=== PATIENT | female | born 2000 | race Caucasian/White ===

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

== ENCOUNTER → 2020-01-30 15:30 | Outpatient (BNVA) | payer MEDICAID, SELFPAY | PROVIDERS: Family Provider Electrodiagnostic Medicine; PCP Electrodiagnostic Medicine; Visit Provider Obstetrics & Gynecology | DX: Z30.014 Encounter for initial prescription of intrauterine contraceptive device (principal); F41.9 Anxiety disorder, unspecified | CPT/HCPCS: 81025 ==

== ENCOUNTER → 2020-05-06 14:51 | Outpatient (BNVA) | payer MEDICAID, SELFPAY | PROVIDERS: Family Provider Electrodiagnostic Medicine; PCP Electrodiagnostic Medicine; Visit Provider Nurse Practitioner Family | DX: Z11.59 Encounter for screening for other viral diseases (principal) | CPT/HCPCS: 87635 ==

== ENCOUNTER → 2020-07-16 10:35 | Outpatient (BNVA) | payer MEDICAID, SELFPAY | PROVIDERS: Family Provider Electrodiagnostic Medicine; PCP Electrodiagnostic Medicine; Visit Provider Nurse Practitioner | DX: Z11.59 Encounter for screening for other viral diseases (principal); J02.9 Acute pharyngitis, unspecified | CPT/HCPCS: 87070; 87071; 87880 ==

== ENCOUNTER → 2020-07-26 12:10 | Outpatient (BNVA) | payer MEDICAID, SELFPAY | PROVIDERS: Family Provider Electrodiagnostic Medicine; PCP Electrodiagnostic Medicine; Visit Provider Nurse Practitioner Family | DX: J02.9 Acute pharyngitis, unspecified (principal) | CPT/HCPCS: 87071; 87880 ==

== ENCOUNTER → 2020-10-04 10:08 | Outpatient (BNVA) | payer MEDICAID, SELFPAY | PROVIDERS: PCP Electrodiagnostic Medicine; Visit Provider Nurse Practitioner Family | DX: J02.9 Acute pharyngitis, unspecified (principal) | CPT/HCPCS: 87071; 87880 ==

== ENCOUNTER → 2020-10-10 11:22 | Outpatient (BNVA) | payer MEDICAID, SELFPAY | PROVIDERS: PCP Electrodiagnostic Medicine | DX: J02.9 Acute pharyngitis, unspecified (principal) | CPT/HCPCS: 86308; 87070 ==

== ENCOUNTER 2020-12-10 23:07 | Emergency (ER) | payer MEDICAID, SELFPAY ==
[2020-12-10 23:13] VITALS: BP 135/89; PULSE 97; RESP 14; TEMP 36.9; O2SAT 100; BMI 34.7
--- NOTE | 2020-12-10 23:23 | ED_ITS ---
HPI - General Adult General: Chief complaint: General Medical Stated complaint: H/A, STUFFY NOSE, SORE THROAT Time Seen by Provider: 12/10/20 23:18 History of Present Illness: HPI narrative: Patient is a 20-year-old female who comes to the ED with nasal congestion and a headache. Patient says symptoms started approximately 4 days ago. She denies any fever, chills, shortness of breath, chest pain, abdominal pain, nausea/vomiting, bladder or bowel symptoms. Patient says she has a cough but it is phlegm from the back of her throat that causes cough. She is also having a sore throat but it has improved in the last 24 hours. She has nasal congestion drainage scantly yellowish-green in color. Patient currently has IUD Mirena for control. Associated symptoms: Reports headache(s); Deny chest pain, dyspnea, nausea, rash, palpitations or vomiting Review of Systems Const: Denies: fever(s), chills or fatigue Eyes: Denies: change in vision or eye discomfort ENMT: Reports: throat pain, nasal discharge, nasal congestion, post nasal drip and sinus pain (bilateral maxillary sinus pain); Denies: odynophagia Card: Denies: chest pain, palpitations, edema, swelling of feet/ankles, dyspnea on exertion or orthopnea Resp: Denies: dyspnea, productive cough or non-productive cough GI: Denies: abdominal pain, nausea, vomiting, diarrhea, constipation or hematochezia : Denies: flank pain, dysuria or hematuria Musc: Denies: neck pain, back pain or extremity swelling Skin/Breast: Denies: rash or new lesions Neuro: Reports: headache(s); Denies: numbness in extremities or weakness in extremities PFS ED PFSH: Medical History Patient denies medical problems Denies diabetes, asthma, hypertension, seizures, DVT/PE, history of genital herpes for her and her partner. PCP: none Surgical History No history of previous surgery Family History Grandfather Diabetes Maternal Father Hypertension Family/Other No problems noted. 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 Looking for a job as well. Additional social history: - Tobacco Use: former vaper; used for approximately a month and stopped November 2018 Alcohol Use: Denies current or past use Drug Use: Denies current or past use Work/Study Status: Graduated High School in 08/2019. Currently staying at home with her baby and plans to go to college in the fall Female Reproductive History: Date of last menstrual period: 03/16/19 Physical Exam Const: COMMON NORMALS: no acute distress, patient oriented x3, healthy appearing and alert GENERAL APPEARANCE: cooperative and comfortable HENMT: COMMON NORMALS: normocephalic HEAD & SCALP: normocephalic FACE & SINUS: sinus tenderness maxillary (Bilateral) NOSE: Nasal discharge present purulent MOUTH: Normal oral and palatal mucosa present THROAT: uvula midline and posterior oropharynx abnormal cobblestoning and erythema; no exudates Neck/C-Spine: COMMON NORMALS: supple GENERAL: Yes normal visual inspection Resp: COMMON NORMALS: normal respiratory effort, No retractions, No use of accessory muscles and clear to auscultation bilaterally EFFORT & INSPECTION: Yes able to speak in complete sentences, No tachypneic, No respiratory distress and No labored AUSCULTATION: clear to auscultation bilaterally Cardio: COMMON NORMALS: regular rate, regular rhythm, S1 normal heart sound present, S2 normal heart sound present, No gallops present (Cardio), No clicks present (Cardio), No murmurs present (Cardio) and Peripheral pulses 2+ throughout RATE: regular rate RHYTHM: regular rhythm HEART SOUNDS: S1 normal heart sound present and S2 normal heart sound present PERIPHERAL PULSE S: Peripheral pulses 2+ throughout GI: COMMON NORMALS: Normal to inspection, nondistended, normoactive bowel sounds present, Soft to palpation, non-tender and no masses PALPATION: Yes Soft to palpation : COMMON NORMALS: Yes no CVA tenderness BLADDER/KIDNEY EXAM: Yes no CVA tenderness Back/Pelvis: COMMON NORMALS: no CVA tenderness Extremity: COMMON NORMALS: normal to inspection Neuro: COMMON NORMALS: patient oriented x3 and moves all extremities SENSORIUM/ORIENTATION: Yes alert Skin: GENERAL SKIN EXAM: dry skin Course Vital Signs: Vital signs: Vital Signs Temperature 98.4 F 12/10/20 23:13 Pulse Rate 97 12/11/20 00:17 Respiratory Rate 14 12/11/20 00:17 Blood Pressure 135/89 12/11/20 00:17 Pulse Oximetry 100 12/11/20 00:17 MDM - General Adult MDM Narrative: Medical decision making narrative: Patient is a 20-year-old female comes to the ED with nasal congestion drainage, headache, sore throat and some sinus pain. Reports yellow-greenish mucus draining from nose. Exam shows a healthy female in no acute distress or pain. Lungs are clear to auscultation bilaterally. Patient had some maxillary sinus tenderness bilaterally upon palpation. Chest x-ray showed no acute findings. Strep test was negative. Janusz valdez was diagnosed with sinusitis and given a dose of azithromycin and Solu- Medrol here in the ED. She is discharged home with prescription for azithromycin and prednisone. Told to follow-up with PCP in 7 to 10 days for reevaluation. Return to ED precautions given. Patient understood and agreed with plan. Lab Data: Attestation: I reviewed the patient's lab results. Labs: Lab Results 12/10/20 Range/Units 23:35 Group A Strep Rapi d Negative (Negative) Imaging Data^: CXR: Attestation: I personally reviewed and interpreted this imaging study as follows: My impression: Chest x-ray showed no acute infiltrates or findings. Discharge Plan Discharge Patient Disposition: Home Clinical Impression: Sinusitis Qualifiers: Sinusitis location: maxillary Chronicity: acute Recurrence: non-recurrent Qual ified Code(s): J01.00 - Acute maxillary sinusitis, unspecified Condition: Stable Prescriptions: New azithromycin 250 mg tablet 250 mg PO DAILY 4 Days Qty: 4 RF: 0 prednisone 50 mg tablet 50 mg PO DAILY 3 Days Qty: 3 RF: 0 No Action Mirena 20 mcg/24 hours (5 yrs) 52 mg intrauterine device 1 device INTRAUTERI .q 5 years Qty: 1 RF: 0 Zyrtec 10 mg capsule 10 mg PO DAILY RF: 0 Discharge Orders: Discharge ED (Routine); Ordered 12/10/20 Ordered By: Javon Hannah Referrals: Nikolai Edge DO [Primary Care Provider] - Discharge Diet: Regular Discharge Activity: Resume usual activity Patient Instructions: Sinusitis (ED) Activity Restrictions/Additional Instructions: Follow-up with medical provider as directed in 7 to 10 days for reevaluation. Take medications as prescribed. Make sure drinking plenty of fluids and staying hydrated. Take apon-lob-xckiqyt Tylenol or ibuprofen for fevers. Return to the ER or your medical provider if condition worsens. Please read and understand discharge instructions. If any questions, please ask. Coding Level of Care Code ED Fixed Capital Clerk for Mary Fwnellie Exam Comprehensive
--- NOTE | 2020-12-10 23:28 | XR_ITS ---
WS: [id number] XR chest 1V portable [id number] REASON FOR EXAM: cough and congestion FINDINGS: The heart and mediastinum are within normal limits. No active pulmonary parenchymal or pleural disease is noted. Mild elevation of the left hemidiaphragm. Bony thorax intact. XR/XR chest 1V portable [id number] IMPRESSION: No acute chest abnormality.
[2020-12-10 23:48] LABS: Rapid Strep A Test Negative (Negative)
[2020-12-11] MEDS: azithromycin 250 mg Tablet 500 MG PO (00:10)
[2020-12-11 00:17] VITALS: BP 135/89; PULSE 97; RESP 14; O2SAT 100
== END 2020-12-11 00:19 | disposition home or self-care (01) ==
PROVIDERS: Emergency Provider Physician Assistant; PCP Electrodiagnostic Medicine
DX: J01.00 Acute maxillary sinusitis, unspecified (principal); Z87.891 Personal history of nicotine dependence
CPT/HCPCS: 71045; 87081; 87880; 96372; 99283; J2930; Q0144

== ENCOUNTER 2021-01-15 00:48 | Emergency (ER) | payer MEDICAID, SELFPAY ==
[2021-01-15 00:58] VITALS: BP 131/91; PULSE 92; RESP 18; TEMP 36.8; O2SAT 99; BMI 27.4
--- NOTE | 2021-01-15 01:10 | ED_ITS ---
HPI - Skin/Abscess/Foreign Bdy General: Chief complaint: Skin/Abscess/Foreign Body Stated complaint: infected ear piercing Time Seen by Provider: 01/15/21 00:51 Source: patient Mode of arrival: ambulatory Limitations: no limitations History of Present Illness: HPI narrative: Patient is a 20-year-old female who presents to ED today along with her for concerns for an infected left ear piercing. She states approximately a month ago she got a bar style 16-gauge piercing to the anterior portion of her left ear. She states over the last few days she has noticed pain and discharge. complaint: other (infected ear piercing) Onset (ago): day(s) Tetanus up to date: yes Location: face (L ear) Severity: mild Relieving factors: none Exacerbating factors: none Context: other (piercing) Associated symptoms: Reports no associated symptoms Treatments prior to arrival: none Review of Systems ENMT: Reports: other (infected L ear piercing); Denies: change in hearing or tinnitus [facility] ED PFSH: Medical History (Updated 01/15/21 @ 01:11 by RALPH Jackson) No pertinent past medical history Denies diabetes, asthma, hypertension, seizures, DVT/PE PMD: none Surgical History No history of previous surgery Family History Grandfather Diabetes Maternal Father Hypertension Family/Other No problems noted. 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 Looking for a job as well. Additional social history: - Tobacco Use: former vaper; used for approximately a month and stopped November 2018 Alcohol Use: Denies current or past use Drug Use: Denies current or past use Work/Study Status: Graduated High School in 08/2019. Currently staying at home with her baby and plans to go to college in the fall Female Reproductive History: Date of last menstrual period: 11/25/20 Physical Exam Const: COMMON NORMALS: no acute distress, patient oriented x3, no limitations and alert HENMT: COMMON NORMALS: hearing grossly normal bilaterally and EAC's normal EXTERNAL EAR: Yes mastoids normal and Yes no periauricular adenopathy EXTERNAL AUDITORY CANAL: EAC's normal TYMPANIC MEMBRANE: TM normal on the left EAR IMAGES: 1. 16g bar piercing; bar was removed in triage by RN; small area of redness with scant amount of purulent drainage; no diffuse auricle cellulitis Neuro: COMMON NORMALS: patient oriented x3 SENSORIUM/ORIENTATION: Yes alert Course Vital Signs: Vital signs: Vital Signs Temperature 98.2 F 01/15/21 00:58 Pulse Rate 92 01/15/21 00:58 Respiratory Rate 18 01/15/21 00:58 Blood Pressure 131/91 01/15/21 00:58 Pulse Oximetry 99 01/15/21 00:58 Discharge Plan Discharge Patient Disposition: Home Clinical Impression: Infected pierced ear Qualifiers: Encounter type: initial encounter Laterality: left Qualified Code(s): S01.332A - Puncture wound without foreign body of left ear, initial encounter Condition: Stable Prescriptions: New mupirocin 2 % ointment 1 applic topical BID Qty: 15 RF: 0 Discharge Orders: Discharge ED (Routine); Ordered 01/15/21 Ordered By: Naheed Barnes Referrals: Nikolai Edge DO [Primary Care Provider] - Patient Instructions: Body Piercing Infection Activity Restrictions/Additional Instructions: Keep wound clean with hydrogen peroxide/alcohol as well as warm soapy water. You may apply the mupirocin ointment twice daily. Monitor for worsening infection such as redness, swelling, drainage, increased pain. Coding Level of Care Code ED Tuck Pointer Helper for Chg Fwd Exam Expanded Problem Focused
[2021-01-15 01:18] VITALS: PULSE 72; RESP 16; O2SAT 99
== END 2021-01-15 01:21 | disposition home or self-care (01) ==
PROVIDERS: Emergency Provider Physician Assistant; PCP Electrodiagnostic Medicine
DX: S01.332A Puncture wound without foreign body of left ear, initial encounter (principal); Z87.891 Personal history of nicotine dependence; W26.8XXA Contact with other sharp object(s), not elsewhere classified, initial encounter
CPT/HCPCS: 99282

== ENCOUNTER → 2021-01-28 11:02 | Outpatient (BNVA) | payer MEDICAID, SELFPAY | PROVIDERS: PCP Electrodiagnostic Medicine; Visit Provider Obstetrics & Gynecology | DX: Z32.01 Encounter for pregnancy test, result positive (principal) | CPT/HCPCS: 81025 ==

== ENCOUNTER → 2021-02-25 10:35 | Outpatient (BNVA) | payer MEDICAID, SELFPAY | PROVIDERS: PCP Electrodiagnostic Medicine; Visit Provider Nurse Practitioner Women's Health | DX: O21.9 Vomiting of pregnancy, unspecified (principal); O99.211 Obesity complicating pregnancy, first trimester; Z3A.00 Weeks of gestation of pregnancy not specified | CPT/HCPCS: 81000 ==

== ENCOUNTER → 2021-03-11 11:08 | Outpatient (BNVA) | payer MEDICAID, SELFPAY | PROVIDERS: PCP Electrodiagnostic Medicine; Visit Provider Obstetrics & Gynecology | DX: Z34.80 Encounter for supervision of other normal pregnancy, unspecified trimester (principal) | CPT/HCPCS: 80307; 81000; 82950; 85027; 86592; 86762; 86803; 86850; 86900; 87086; 87340; 87806 ==

== ENCOUNTER → 2021-03-14 14:17 | Outpatient (BNVA) | payer MEDICAID, SELFPAY | PROVIDERS: PCP Electrodiagnostic Medicine; Visit Provider Obstetrics & Gynecology | DX: R30.0 Dysuria (principal) | CPT/HCPCS: 81000; 87077; 87086; 87184 ==

== ENCOUNTER 2021-03-30 15:26 | Emergency (ER) | payer MEDICAID, SELFPAY ==
[2021-03-30 15:50] VITALS: BP 143/96; PULSE 92; RESP 18; TEMP 36.6; O2SAT 92; BMI 36.0
--- NOTE | 2021-03-30 17:36 | USR_ITS ---
PROCEDURE INFORMATION: Exam: US , Limited Exam date and time: 03/30/2021 5:36 PM Age: 20 years old Clinical indication: Lmp or gestational age (in weeks): 13w0d; Antepartum complications; Bleeding; ; Additional info: Threatened ab TECHNIQUE: Imaging protocol: Real-time ultrasound of the maternal uterus with image documentation. Exam focused on the clinical indication. COMPARISON: US OB transvaginal [facility] 03/11/2021 10:06 AM FINDINGS: Gestation: movement is present. heart rate: heart beat 160 bpm. Placenta: Posterior placenta. Amniotic fluid: Subjectively normal amniotic fluid. BIOMETRY: Gestational age (AUA): Single viable intrauterine with EGA 13 weeks 0 days. Estimated due date (AUA): SABINE by ultrasound October 05, 2021. Matheny-Rump length: 6.76 cm crown-rump length with EGA 13 weeks 0 days. MATERNAL: Cervix: 4.1 cm closed cervix. US/US OB limited [id number] IMPRESSION: 1. Single viable intrauterine with EGA 13 weeks 0 days. 2. SABINE by ultrasound October 05, 2021. 3. 4.1 cm closed cervix. 4. Posterior placenta. 5. Subjectively normal amniotic fluid.
--- NOTE | 2021-03-30 18:13 | W.ED.FEMALGU ---
HPI - Female Genitourinary General: Chief complaint: Urogenital-Female Stated complaint: 13 WEEKS PREG AND BLEEDING Time Seen by Provider: 03/30/21 17:37 History of Present Illness: HPI Narrative: Patient is a 20-year-old female G2, P1 at approximately 13 weeks gestational age who comes to the ER complaining of spotting. Not enough to change her pad. She says she is usually lazy and lays around it does nothing however today she walked for 2 hours and had spotting. She is upset about waiting in the waiting room for over 2 hours however during that time the spotting has stopped. She was treated for urinary tract infection about 1-1/2 weeks ago. She denies vaginal discharge at this time. Spotting resolved. cramping improving as well. MD elicited complaint: vaginal bleeding and possible miscarriage Severity: mild Quality of pain: cramping Vaginal discharge: none Vaginal bleeding: scant Exacerbating factors: none Relieving factors: other (resting) Associated symptoms: Reports no associated symptoms; Deny abdominal pain, headache(s) or vaginal discharge Patient : Yes Date of Last Menstrual Period: 12/29/20 Review of Systems General: Reports: 10 or more systems reviewed and unremarkable except in HPI and below Const: Denies: fatigue Eyes: Denies: change in vision, blurry vision or eye redness ENMT: Denies: throat pain, swelling of lips/tongue, ear or mastoid pain or nasal congestion Card: Denies: chest pain, palpitations, irregular heart rhythm, edema, dyspnea on exertion or orthopnea Resp: Denies: dyspnea, productive cough or non-productive cough GI: Denies: abdominal pain, diarrhea or GI cramping : Reports: vaginal bleeding (spotting); Denies: flank pain, difficulty voiding, urinary frequency, urinary urgency or vaginal discharge Musc: Denies: neck pain, back pain, extremity pain, joint pain, joint redness, limited range of motion or muscle weakness Skin/Breast: Denies: rash, pruritus, erythema, skin pain or skin tenderness Neuro: Denies: headache(s), numbness in extremities, weakness in extremities, sensory changes, difficulty walking, dizziness, confusion or Slurred speech present Psych: Denies: anxiety or depression Endo: Denies: polyuria All/Imm: Denies: urticaria, throat swelling or tongue swelling PFSH ED PFSH: Medical History No pertinent past medical history Denies diabetes, asthma, hypertension, seizures, DVT/PE PMD: none Surgical History No history of previous surgery Family History Grandfather Diabetes Maternal Father Hypertension Denies family history of Colon cancer Ovarian cancer Heart disease Hyperlipidemia Breast cancer Uterine cancer Thyroid condition Stroke Social History Smoking and tobacco status: former smoker Alcohol intake: never Female Reproductive History: Date of last menstrual period: 12/29/20 Physical Exam Const: COMMON NORMALS: no acute distress, average body habitus, patient oriented x3, no limitations, healthy appearing, alert and well nourished GENERAL APPEARANCE: cooperative, comfortable, well kempt and well developed ORIENTATION/CONSCIOUSNESS: Yes awake, Yes oriented to person, Yes oriented to place and Yes oriented to time HENMT: COMMON NORMALS: normocephalic, external ears normal and Normal external nose present HEAD & SCALP: normal to inspection and normocephalic NOSE: Normal external nose present EXTERNAL EAR: Yes external ears normal MOUTH: Normal oral and palatal mucosa present THROAT: posterior oropharynx normal Eye: COMMON NORMALS: Equal, round and reactive pupils present and EOMs intact bilaterally GENERAL EYE: appearance normal, both eyes and all related structures PUPIL: Yes Equal, round and reactive pupils present Neck/C-Spine: COMMON NORMALS: full ROM, no lymphadenopathy, no meningeal signs and no JVD GENERAL: Yes normal visual inspection Lymph: LYMPHATIC: no lymphadenopathy noted Chest: COMMONS NORMALS: normal inspection of the chest and normal palpation of entire chest wall Resp: COMMON NORMALS: normal respiratory effort, No retractions, No use of accessory muscles, clear to auscultation bilaterally and percussion normal EFFORT & INSPECTION: Yes able to speak in complete sentences AUSCULTATION: clear to auscultation bilaterally PERCUSSION: percussion normal Cardio: COMMON NORMALS: no JVD, regular rate, regular rhythm, S1 normal heart sound present, S2 normal heart sound present and Peripheral pulses 2+ throughout RATE: regular rate RHYTHM: regular rhythm HEART SOUNDS: S1 normal heart sound present and S2 normal heart sound present PERIPHERAL PULSES: Peripheral pulses 2+ throughout GI: COMMON NORMALS: Normal to inspection, nondistended, normoactive bowel sounds present, Soft to palpation, non-tender and no masses PALPATION: Yes Soft to palpation OTHER: belly appropriate size for gestational age. cannot palpate uterus. : COMMON NORMALS: Yes no CVA tenderness BLADDER/KIDNEY EXAM: Yes no CVA tenderness Back/Pelvis: COMMON NORMALS: no CVA tenderness, thoracic and lumbar spine normal to inspection, no thoracic nor lumbar tenderness and thoraco-lumbar ROM normal Extremity: COMMON NORMALS: normal to inspection, full ROM, capillary refill normal, no joint enlargement and no pedal edema GENERAL: Yes normal exam except as noted Neuro: COMMON NORMALS: patient oriented x3, CN's II-XII intact bilaterally, moves all extremities, no focal motor deficits, no sensory deficits noted and gait normal SENSORIUM/ORIENTATION: Yes alert, Yes oriented to person, Yes oriented to place and Yes oriented to time MENINGEAL SIGNS: Yes no meningeal signs Psych: COMMON NORMALS: mental status grossly normal, Normal thought process present, cooperative, normal affect and speech normal APPEARANCE: Yes well kempt ATTITUDE: Yes calm SPEECH: Yes normal speech THOUGHT PROCESS: Normal thought process present Skin: COMMON NORMALS: no rashes or lesions noted GENERAL SKIN EXAM: no rashes or lesions noted Course Vital Signs: Vital signs: Vital Signs Temperature 97.9 F 03/30/21 15:50 Pulse Rate 92 03/30/21 15:50 Respiratory Rate 18 03/30/21 15:50 Blood Pressure 143/96 03/30/21 15:50 Pulse Oximetry 92 03/30/21 15:50 MDM - Female MDM Narrative: Medical decision making narrative: Patient came into the ER with vaginal spotting. She is approximately 13 weeks gestational age. By the time I saw her the spotting stopped and she had an unusual increase in activity today where she walked for 2 hours which is likely the cause. Ultrasound shows healthy fetus 13 weeks and 0 days. Due date October 05, 2021. Labs and urine look clean. Stable for discharge. Follow-up with OB later this week and have blood pressure rechecked as it has been high here possibly chronic hypertension. Return to ER with worsening symptoms at any time Lab Data: Labs: Lab Results 03/30/21 03/30/21 03/30/21 Range/Units 18:56 18:56 19:08 WBC 11.3 (4.5-13.0) 10^3/ uL RBC 4.87 (4.1-5.3) 10^6/u L Hgb 13.3 (11.5-15.3) g/dL Hct 38.9 (37.0-47.0) % MCV 79.9 L (81-99) fL MCH 27.3 L (28.0-34.0) pg MCHC 34.2 (30.0-36.0) g/dL RDW 13.4 (12.1-15.1) % Plt Count 272 (130-400) 10^3/c mm MPV 9.0 (7.4-10.4) fL Neut % (Auto) 72.5 % Lymph % (Auto) 21.9 % [place] % (Auto) 4.8 % Eos % (Auto) 0.4 % Baso % (Auto) 0.1 % Neut # (Auto) 8.19 H (1.8-8.0) 10^3/u L Lymph # (Auto) 2.5 (1.5-6.5) 10^3/u L [place] # (Auto) 0.5 (0.2-0.9) 10^3/u L Eos # (Auto) 0.0 (0.0-0.8) 10^3/u L Baso # (Auto) 0.0 (0.0-0.1) 10^3/u L Nucleated RBC % (a uto) 0 % Nucleated RBCs # 0.0 /100WBC Sodium 138 (136-145) mmol/L Potassium 3.7 (3.5-5.1) mmol/L Chloride 104 (98-107) mmol/L Carbon Dioxide 22 (22-29) mmol/L Anion Gap 15.7 (5-19) BUN 5 L (6-20) mg/dL Creatinine 0.5 (0.5-0.9) mg/dL GFR Calculation 157.3 H (90-130) mL/min Glucose 70 (65-115) mg/dL Calculated Osmolal ity 282 L (285-295) mOsm/k g Calcium 8.6 (8.5-10.5) mg/dL Total Bilirubin 0.2 (0.15-1.2) mg/dL AST 10 (0-32) U/L ALT 12 (0-33) U/L Alkaline Phosphata se 71 (35-105) IU/L Total Protein 6.8 (6.6-8.7) g/dL Albumin 3.8 (3.5-5.2) g/dL Globulin 3.0 (1.3-4.6) g/dL Ser , [place] [address].00 mIU/mL Urine Color Yellow (Yellow) Urine Appearance Clear (CLEAR) Urine pH 7 (5-7) Ur Specific Gravit y 1.010 (1.005-1.030) Urine Protein Neg (Negative) Urine Glucose (UA) Norm (Normal) Urine Ketones Negative (Negative) Urine Blood Neg (Negative) Urine Nitrate Negative (Negative) Urine Bilirubin Neg (Negative) Urine Urobilinogen Norm (Negative) mg/dL Ur Leukocyte Gia ase Negative (Negative) Discharge Plan Discharge Patient Disposition: Home Clinical Impression: Threatened miscarriage Condition: Stable Prescriptions: No Action Gummies 400 mcg-35 mg- 25 mg-5 mg tablet,chewable 1 tab PO DAILY RF: 0 metoclopramide HCl [Reglan] 5 mg tablet 5 mg PO Q6H 30 Days Qty: 120 RF: 0 Discharge Orders: Discharge ED (Routine); Ordered 03/30/21 Ordered By: Sebastian Varags Referrals: Nikolai Edge DO [Primary Care Provider] - Discharge Diet: Advance as tolerated Discharge Activity: Resume usual activity Patient Instructions: Threatened Miscarriage (ED), Opioid Safety Activity Restrictions/Additional Instructions: You have had some vaginal spotting which is called a threatened miscarriage. Your lab work looks great and the baby is 13 weeks gestational age by the ultrasound. Delivery date on today's ultrasound is October 05, 2021. Please return to the ER with any worsening symptoms otherwise follow-up with your OB this week. Make sure the OB checks your blood pressure again and discuss it has been elevated. Return to the ER with worsening symptoms at any time Coding Level of Care Code ED Buffing And Sueding Machine Operator for Mary Fwd Exam Comprehensive
[2021-03-30 19:02] LABS: Basophils % 0.1 %; Eosinophils % 0.4 %; Hematocrit 38.9 % (37.0-47.0); Hemoglobin 13.3 g/dL (11.5-15.3); Lymphocytes # 2.5 10^3/uL (1.5-6.5); Lymphocytes % 21.9 %; Mean Corpuscular HGB Conc 34.2 g/dL (30.0-36.0); Mean Corpuscular Hemoglobin 27.3 pg (28.0-34.0); Mean Corpuscular Volume 79.9 fL (81-99); Monocytes # 0.5 10^3/uL (0.2-0.9); Monocytes % 4.8 %; Neutrophils # 8.19 10^3/uL (1.8-8.0); Neutrophils % 72.5 %; Nucleated Red Blood Cells % 0 %; Platelet Count 272 10^3/cmm (130-400); Red Blood Count 4.87 10^6/uL (4.1-5.3); Red Cell Distribution Width 13.4 % (12.1-15.1); White Blood Count 11.3 10^3/uL (4.5-13.0)
[2021-03-30 19:23] LABS: Add Urine Microscopic? NO; Charge for UA Resulting for Rev
[2021-03-30 19:28] LABS: Bilirubin Urine Neg (Negative); Blood Urine Neg (Negative); Glucose Urine UA Norm (Normal); Ketones Urine Negative (Negative); Leukocyte Esterase Urine Negative (Negative); Nitrate Urine Negative (Negative); Protein Urine Neg (Negative); Urine Appearance Clear (CLEAR); Urine Color Yellow (Yellow); Urobilinogen Urine Norm (Negative); pH Urine 7 (5-7)
[2021-03-30 19:37] LABS: Alanine Aminotransferase 12 U/L (0-33); Albumin Level 3.8 g/dL (3.5-5.2); Alkaline Phosphatase 71 IU/L (35-105); Anion Gap 15.7 (5-19); Aspartate Amino Transferase 10 U/L (0-32); Blood Urea Nitrogen 5 mg/dL (6-20); Calcium 8.6 mg/dL (8.5-10.5); Carbon Dioxide 22 mmol/L (22-29); Chloride 104 mmol/L (98-107); Glomerular Filtration Rate 157.3 mL/min (90-130); Glucose 70 mg/dL (65-115); Osmolality Calculated 282 mOsm/kg (285-295); Potassium 3.7 mmol/L (3.5-5.1); Sodium 138 mmol/L (136-145); Total Bilirubin 0.2 mg/dL (0.15-1.2); Total Protein 6.8 g/dL (6.6-8.7)
[2021-03-30 19:57] VITALS: BP 142/92; PULSE 91; RESP 18; O2SAT 96
== END 2021-03-30 19:56 | disposition home or self-care (01) ==
PROVIDERS: Emergency Provider Family Medicine; PCP Electrodiagnostic Medicine
DX: O20.0 Threatened abortion (principal); Z3A.13 13 weeks gestation of pregnancy; Z87.891 Personal history of nicotine dependence
CPT/HCPCS: 76815; 80053; 81003; 84702; 85025; 99283

== ENCOUNTER → 2021-04-02 10:03 | Outpatient (BNVA) | payer MEDICAID, SELFPAY | PROVIDERS: PCP Electrodiagnostic Medicine; Visit Provider Obstetrics & Gynecology | DX: Z34.80 Encounter for supervision of other normal pregnancy, unspecified trimester (principal) | CPT/HCPCS: 81000; 87491; 87591 ==

== ENCOUNTER → 2021-04-17 14:48 | Outpatient (BNVA) | payer MEDICAID, SELFPAY | PROVIDERS: PCP Electrodiagnostic Medicine; Visit Provider Nurse Practitioner Women's Health | DX: O99.891 Other specified diseases and conditions complicating pregnancy (principal); R82.71 Bacteriuria; Z3A.00 Weeks of gestation of pregnancy not specified | CPT/HCPCS: 81000; 87086 ==

== ENCOUNTER → 2021-05-26 14:29 | Outpatient (BNVA) | payer MEDICAID, SELFPAY | PROVIDERS: PCP Electrodiagnostic Medicine; Visit Provider Obstetrics & Gynecology | DX: O35.8XX0 Maternal care for other (suspected) fetal abnormality and damage, not applicable or unspecified (principal); Z3A.00 Weeks of gestation of pregnancy not specified | CPT/HCPCS: 81000 ==

== ENCOUNTER → 2021-06-08 15:39 | Outpatient (BNVA) | payer MEDICAID, SELFPAY | PROVIDERS: PCP Electrodiagnostic Medicine; Visit Provider Nurse Practitioner | DX: J02.9 Acute pharyngitis, unspecified (principal); J03.80 Acute tonsillitis due to other specified organisms; B96.89 Other specified bacterial agents as the cause of diseases classified elsewhere | CPT/HCPCS: 87880 ==

== ENCOUNTER → 2021-07-07 15:30 | Outpatient (BNVA) | payer MEDICAID, SELFPAY | PROVIDERS: PCP Electrodiagnostic Medicine; Visit Provider Obstetrics & Gynecology | DX: Z34.80 Encounter for supervision of other normal pregnancy, unspecified trimester (principal) | CPT/HCPCS: 81000; 82950; 85027 ==

== ENCOUNTER → 2021-07-28 08:06 | Outpatient (BNVA) | payer MEDICAID, SELFPAY | PROVIDERS: PCP Electrodiagnostic Medicine; Visit Provider Obstetrics & Gynecology | DX: Z34.80 Encounter for supervision of other normal pregnancy, unspecified trimester (principal) | CPT/HCPCS: 81000 ==

== ENCOUNTER → 2021-08-12 14:06 | Outpatient (BNVA) | payer MEDICAID, SELFPAY | PROVIDERS: PCP Electrodiagnostic Medicine; Visit Provider Nurse Practitioner Women's Health | DX: Z34.80 Encounter for supervision of other normal pregnancy, unspecified trimester (principal) | CPT/HCPCS: 81000 ==

== ENCOUNTER → 2021-08-27 12:27 | Outpatient (BNVA) | payer MEDICAID, SELFPAY | PROVIDERS: PCP Electrodiagnostic Medicine; Visit Provider Obstetrics & Gynecology | DX: Z34.80 Encounter for supervision of other normal pregnancy, unspecified trimester (principal) | CPT/HCPCS: 81000 ==

== ENCOUNTER 2021-09-10 03:27 | Outpatient (CLI) | payer MEDICAID, SELFPAY ==
[2021-09-10] VITALS (22 sets, daily range): BP systolic 110–137; BP diastolic 60–90; PULSE 83–109; RESP 15; TEMP 36.6; O2SAT 97–100; BMI 38.9
== END 2021-09-10 05:15 | disposition home or self-care (01) ==
LOC: OPOB 03:28 → OBGYN 03:29
PROVIDERS: PCP Electrodiagnostic Medicine; Visit Provider Obstetrics & Gynecology
DX: O26.899 Other specified pregnancy related conditions, unspecified trimester (principal); Z3A.00 Weeks of gestation of pregnancy not specified; R10.9 Unspecified abdominal pain
CPT/HCPCS: 59025; 99211

== ENCOUNTER → 2021-09-11 09:25 | Outpatient (BNVA) | payer MEDICAID, SELFPAY | PROVIDERS: PCP Electrodiagnostic Medicine; Visit Provider Nurse Practitioner Women's Health | DX: Z34.80 Encounter for supervision of other normal pregnancy, unspecified trimester (principal) | CPT/HCPCS: 76816 ==

== ENCOUNTER 2021-09-11 12:40 | Outpatient (CLI) | payer MEDICAID, SELFPAY ==
[2021-09-11] VITALS (7 sets, daily range): BP systolic 110–120; BP diastolic 69–80; PULSE 93–116; RESP 18; TEMP 35.7–36.9; BMI 36.2
== END 2021-09-11 15:10 | disposition home or self-care (01) ==
LOC: OPOB 12:45 → OBGYN 12:46
PROVIDERS: PCP Electrodiagnostic Medicine; Visit Provider Obstetrics & Gynecology
DX: O26.899 Other specified pregnancy related conditions, unspecified trimester (principal); Z3A.00 Weeks of gestation of pregnancy not specified; R10.9 Unspecified abdominal pain
CPT/HCPCS: 59025; 81000; 87081; 99211

== ENCOUNTER → 2021-09-17 09:38 | Outpatient (BNVA) | payer MEDICAID, SELFPAY | PROVIDERS: PCP Electrodiagnostic Medicine; Visit Provider Nurse Practitioner Women's Health | DX: Z34.80 Encounter for supervision of other normal pregnancy, unspecified trimester (principal) | CPT/HCPCS: 81000 ==

== ENCOUNTER → 2021-09-22 12:58 | Outpatient (BNVA) | payer MEDICAID, SELFPAY | PROVIDERS: PCP Electrodiagnostic Medicine; Visit Provider Obstetrics & Gynecology | DX: Z34.80 Encounter for supervision of other normal pregnancy, unspecified trimester (principal) | CPT/HCPCS: 81000; 87635 ==

== ENCOUNTER 2021-09-24 12:32 | Outpatient (CLI) | payer MEDICAID, SELFPAY ==
[2021-09-24 12:52] VITALS: TEMP 36.5
[2021-09-24 13:13] VITALS: BMI 39.3
[2021-09-24 13:20] VITALS: BP 123/85; PULSE 93; RESP 17
[2021-09-24 13:42] VITALS: RESP 17
== END 2021-09-24 13:53 | disposition home or self-care (01) ==
LOC: OPOB 12:34 → OBGYN 12:50
PROVIDERS: PCP Electrodiagnostic Medicine; Visit Provider Obstetrics & Gynecology
DX: O26.899 Other specified pregnancy related conditions, unspecified trimester (principal); Z3A.00 Weeks of gestation of pregnancy not specified; R10.9 Unspecified abdominal pain
CPT/HCPCS: 59025; 99211

== ENCOUNTER 2021-09-25 22:15 | Inpatient (IN) | payer MEDICAID, SELFPAY ==
[2021-09-25] VITALS (31 sets, daily range): BP systolic 118–129; BP diastolic 60–76; PULSE 92–134; RESP 16; TEMP 36.6; O2SAT 97–99; BMI 39.3
[2021-09-25] MEDS: dextrose 5%-lactated ringers 1,000 ML 999 ML IV (22:40)
[2021-09-25 22:53] LABS: Basophils % 0.2 %; Eosinophils % 0.3 %; Hematocrit 34.7 % (37.0-47.0); Hemoglobin 11.3 g/dL (11.5-15.3); Lymphocytes # 1.9 10^3/uL (1.5-6.5); Lymphocytes % 19.6 %; Mean Corpuscular HGB Conc 32.6 g/dL (30.0-36.0); Mean Corpuscular Hemoglobin 26.2 pg (28.0-34.0); Mean Corpuscular Volume 80.5 fl (81-99); Mean Platelet Volume 9.1 fL (7.4-10.4); Monocytes # 0.5 10^3/uL (0.2-0.9); Monocytes % 5.5 %; Neutrophils # 7.27 10^3/uL (1.8-8.0); Nucleated Red Blood Cells % 0 %; Platelet Count 281 10^3/cmm (130-400); Red Blood Count 4.31 10^6/uL (4.1-5.3); Red Cell Distribution Width 13.8 % (12.1-15.1); White Blood Count 9.8 10^3/uL (4.5-13.0)
[2021-09-26] VITALS (113 sets, daily range): BP systolic 84–245; BP diastolic 49–150; PULSE 78–176; RESP 17–18; TEMP 36–36.9; O2SAT 96–100
[2021-09-26] MEDS: miSOPROStol 100 mcg tablet 25 MCG VAGINAL
[2021-09-26] MEDS: oxytocin 30 UNIT/500 ML BAG IV (06:00)
[2021-09-26] MEDS: dextrose 5%-lactated ringers 1,000 ML 125 ML IV ×2 (06:00→15:05)
[2021-09-26] MEDS: lactated ringers 1,000 ML 999 ML IV ×2 (12:58→14:05)
--- NOTE | 2021-09-26 13:03 | PM.OPHPUD ---
Labor & Delivery H&P Update Date of Procedure: September 26, 2021 Date H&P Performed: 09/22/21 H&P update information: I have reviewed H&P completed within last 30 days, I have examined patient prior to procedure, Changes to prior documentation as noted here and H&P is in [facility] [place] on date indicated Changes to previous documentation: Patient is 3 to 4 cm, 60% and -2 station Admission Diagnosis:
--- NOTE | 2021-09-26 14:24 | ANES.PREANE2 ---
Pre-Anesthetic Assessment Pre-Anesthetic Assessment: Height/Weight: Height 1.57 m Weight 97.522 kg Temp Pulse Resp BP Pulse Ox 96.8 F L 108 H 17 127/77 100 09/26/21 05:27 09/26/21 14:13 09/26/21 09:42 09/26/21 13:31 09/26/21 14:13 Preop Diagnosis: Labor Pain Proposed Procedure: JIM Was Beta Yamilex taken within 24 hours: N/A Social: Social History: No alcohol and No tobacco Exam: Pre-Anes Outpt Exam: alert, oriented x 3, clear to auscultation bilaterally and regular rate & rhythm Airway: Submandibular: WNL Cervical ROM: WNL MP: 2 Dentition: Full History/ROS: No significant history except as noted and No significant complaints Pulmonary: Pulmonary: None reported CV/HEM: CV/HEM: None reported : : None reported Hepatic: Hepatic: None reported GI: GI: None reported Metabolic: Metabolic: None reported Musc/skel: Musc/skel: None reported Neuropsych: Neuropsych: None reported Anesthetic Plan: ASA status: 2 Anesthesia: Anesthesia Evaluation and Regional (specify below) Risk of > 500 ml blood loss (7ml/kg in children): No Meds/Allergies Current Medications: Current Medications Generic Name Dose Route Start Last Admin Trade Name Freq PRN Reason Stop Dose Admin Dextrose/Lactated Ringer's 1,000 mls @ 125 m ls/hr 09/25/21 22:20 09/26/21 06:00 Dextrose 5%-Lact ated Ringers IV 125 mls/hr .Q8H PRN Administration per label comment s Oxytocin 30 unit in 500 ml s @ 1 mls/hr 09/26/21 06:00 09/26/21 07:00 Pitocin IV 5 milliunit/min .Q24H TORSTEN 5 mls/hr Titration Protocol 1 MILLIUNIT/MIN Lactated Ringer's 1,000 mls @ 999 m ls/hr 09/26/21 12:45 09/26/21 12:58 Lactated Ringers IV 999 mls/hr .Q1H1M PRN Administration See label comment s PFSH Anesthesia PFSH: Medical History No pertinent past medical history Denies diabetes, asthma, hypertension, seizures, DVT/PE PMD: none Surgical History No history of previous surgery Family History Grandfather Diabetes Maternal Father Hypertension Denies family history of Colon cancer Ovarian cancer Heart disease Hyperlipidemia Breast cancer Uterine cancer Thyroid condition Stroke Female Reproductive History: Date of last menstrual period: 12/29/20 : 2 Data Anesthesia CBC & Chem 7: 09/25/21 22:30 Other Labs: Laboratory Results - last 48 hr 09/25/21 22:30 WBC 9.8 RBC 4.31 Hgb 11.3 L Hct 34.7 L MCV 80.5 L MCH 26.2 L MCHC 32.6 RDW 13.8 Plt Count 281 MPV 9.1 Neut % (Auto) 74.0 Lymph % (Auto) 19.6 [place] % (Auto) 5.5 Eos % (Auto) 0.3 Baso % (Auto) 0.2 Neut # (Auto) 7.27 Lymph # (Auto) 1.9 [place] # (Auto) 0.5 Eos # (Auto) 0.0 Baso # (Auto) 0.0 Nucleated RBC % (auto) 0 Nucleated RBCs # 0.0 Cardiac Studies: No Data to Display
--- NOTE | 2021-09-26 14:26 | ANES.PROC ---
Anesthesia Procedures Procedure/Date: 09/26/21 Epidural: Time Out Performed: Yes Consents Signed: Procedure Consent Consent: from patient Lumbar Level: L3-L4 Epidural position: sitting Epidural procedure: sterile prep of area, 1% lidocaine to numb the area, neg for paresthesia, test dose given, 1.5% xylocaine 1:200k epi (5cc), 0.2% Ropivacaine bolus ml (4cc and Fentanyl 100 mcg), no systemic response, sterile dressing applied, L.U.D. no apparent complications and 0.2% Ropiavacaine @ mls/hr (11cc/hour) Additional Comments: Pt tolerated well
--- NOTE | 2021-09-26 18:49 | P.PCNOB_ITS ---
Delivery Note: Date of delivery: September 26, 2021 - PRE-DELIVERY DIAGNOSIS: 20-year-old 1 para 0 at 39 weeks and 1 day gestation GBS negative Obesity-BMI of 39 Elective induction of labor POST-DELIVERY DIAGNOSIS: Vaginal delivery on 08/27/2021 PROCEDURE: Vaginal delivery on 08/27/2021 ANESTHESIA: Epidural anesthesia DELIVERING PHYSICIAN: Cele Fay FACOG PRE-DELIVERY COURSE: Ms. Lockhart is a 20-year-old 2 P1001 at 39 weeks and 1 day who presented to labor and delivery on 09/25/2021 for elective induction of labor. She states that she has been having irregular contractions but nothing consistently denies any change in her history since last saw her. On exam she was noted to be 2 cm 60% and -3 station cephalic with a category 1 tracing. Induction was started with Cytotec placed at midnight. 4 hours later she had made minimal cervical change to 2 to 3 cm but was now 70% and -3 station. She was allowed to rest and was allowed to eat and Pitocin was started at 6 AM titrated to a maximum of 17 mIU. With this she started to have regular contractions but made just minimal cervical change to 3 cm 70% and -3 station. Artificial rupture of membranes was performed at 12:42 AM with clear fluid and at this time she was 4 cm 60% and -2 station. She started to have variable decelerations with contractions after this and Pitocin was cut down and oxygen given and tracing responded well and was category 1. She grow uncomfortable and an epidural was placed. After the epidural she was noted to be 5 cm at 3 PM. She made rapid cervical change and was fully dilated at 5:20 PM when the head was 0 station. She was allowed to labor down and she was started pushing at 5:51 PM. Tracing was overall category 1 with small areas of variable decelerations that responded to position change. DELIVERY NOTE: She was set up in lithotomy position and was pushing effectively. She was noted to be +3 station and continued pushing well. The head delivered in LYNSEY position, no nuchal cord was present. The shoulders and rest of the body followed with her next push with the posterior right shoulder delivering before the anterior shoulder. The baby's mouth and nose were suctioned and the baby was placed on the mother's belly. Once cord pulsations stopped the cord was clamped and cut. The placenta delivered spontaneously intact with membranes and was discarded. The fundus was noted to be firm and well contracted. The vagina and cervix were inspected and no cervical or sulcal lacerations were noted. The perineum was noted to be intact. Baby boy , Jeancarlos born at 6:40 PM on 09/26/2021 with 9/9, weighing 7 pounds 1 ounce, 3200 g, 20-1/2 inches long. Placenta was delivered spontaneously intact with membranes at 6:43 PM. Cotyledons were intact , centrally inserted umbilical cord with 3 vessels noted. Estimated blood loss 250 mL. Complications-none, both baby and mother were left to recover in a stable condition This documentation was created by [employer] manufacturing group leader software (known for inherent manufacturing group leader error). Every effort was made to assure accuracy of manufacturing group leader. Any obvious errors or omissions should be clarified with the author of the document. History History History 2 Term 1 Miscarriages/Ectopic 0 0 Living Children 1 Other History: X 2 1--> 12/11/2019, male, ([place]) , 6 lbs 12 ozs, 38 wks, epidural, vaginal delivery by Dr Fay at [facility], [place], [place]. Delivery was uncomplicated. 2--> 09/26/2021, male,(Jeancarlos), 7 pounds 1 ounce, 39 weeks 1 day, epidural, vaginal delivery by Dr. Fay at [facility]. Intact perineum. Coding Level of Care Code Acute Farmer General for Pablog Gonzalez
[2021-09-26] MEDS: ibuprofen 800 mg tablet PO (20:47)
[2021-09-27] VITALS (7 sets, daily range): BP systolic 119–142; BP diastolic 64–81; PULSE 74–108; TEMP 35.6–36.1
[2021-09-27] MEDS: HYDROcodone-acetaminophen 5-325 mg Tablet PO ×2 (05:22→13:54)
[2021-09-27 07:53] LABS: Hematocrit 33.2 % (37.0-47.0); Mean Corpuscular HGB Conc 33.1 g/dL (30.0-36.0); Mean Corpuscular Hemoglobin 26.6 pg (28.0-34.0); Mean Corpuscular Volume 80.2 fl (81-99); Platelet Count 245 10^3/cmm (130-400); Red Blood Count 4.14 10^6/uL (4.1-5.3); Red Cell Distribution Width 13.9 % (12.1-15.1); White Blood Count 13.2 10^3/uL (4.5-13.0)
[2021-09-27] MEDS: ibuprofen 800 mg tablet PO ×3 (08:44→20:54)
[2021-09-27] MEDS: prenatal vitamin Capsule 1 CAP PO (08:45)
[2021-09-27] MEDS: docusate sodium 100 mg Capsule PO ×2 (08:45→22:37)
--- NOTE | 2021-09-27 11:41 | ANE.PACU2 ---
Inpatient post-anesthesia follow up: Airway intact: Yes Vital signs: Temperature 96.6 F Pulse Rate 108 Respiratory Rate 18 Blood Pressure 132/81 Pulse Oximetry 100 Oxygen Delivery Me thod Room Air Oxygen Flow Rate Fraction of Inspir ed Oxygen Hydration adequate: Yes Nausea and vomiting: No Pain level: 2 Mental status: Baseline
--- NOTE | 2021-09-27 17:47 | P.PN_ITS ---
Subjective Subjective: Interval history: SUBJECTIVE: Ms. Lockhart is doing well to a. She reports minimal pain but does have cramping when she breast-feeds. She is breast-feeding without any difficulty and she would like her son to be circumcised. She denies heavy vaginal bleeding fever, chills, shortness of breath. Overall feels pretty okay. She denies any depressive symptoms OBJECTIVE/PHYSICAL EXAM: Gen.: No acute distress Heart: S1-S2 heard, regular rate and rhythm Lungs: Clear to auscultation bilaterally Abdomen: Soft, fundus firm below umbilicus Legs: No calf tenderness, +1 bilateral pitting pedal edema. ASSESSMENT AND PLAN: 20-year-old 2 para 2 status post vaginal delivery on 09/26/2021, day #1 -Continue routine care-regular diet, p.o. pain medication as needed -Encourage ambulation -Anticipate discharge home after 24 to 48 hours as long she continues to do well -Hemoglobin stable -Counseled about circumcision-consent signed-circumcision to be done today Vitals/I&O/Wt Last Vital Signs Temp 96.6 F L 09/27/21 08:47 Pulse 106 H 09/27/21 13:56 Resp 18 09/26/21 18:00 BP 142/79 09/27/21 13:56 Pulse Ox 100 09/26/21 15:58 Weight last 48 hrs Weight 215 lb Physical Exam Urinary Catheter Management^: Latex Free: Cath Placed During This Visit: yes Urinary Catheter Date of Insertion: 09/26/21 Urinary Catheter Time of Insertion: 15:05 Data : 09/27/21 07:20 Attestations Medical Necessity Statement*: Patient may need to stay for 1-2 more midnights to recover from delivery Coding Level of Care Code Acute Coordinator Of Health Services for Pablog Gonzalez
[2021-09-28 04:03] VITALS: BP 129/78; PULSE 94; TEMP 36.3
[2021-09-28] MEDS: ibuprofen 800 mg tablet PO ×2 (09:49→14:57)
[2021-09-28] MEDS: prenatal vitamin Capsule 1 CAP PO (09:49)
[2021-09-28] MEDS: docusate sodium 100 mg Capsule PO (09:49)
[2021-09-28 09:50] VITALS: BP 124/76; PULSE 104; TEMP 36.4
[2021-09-28 09:51] VITALS: RESP 15
--- NOTE | 2021-09-28 11:39 | PM.OBGYDC ---
Discharge Providers AGENCY SALES DEVELOPMENT ASSOCIATE Date of Admission: 09/26/21 04:00 Date of Discharge: 09/28/21 Attending Provider at Admission: Cele Bae MD Attending Provider at Discharge: Cele Bae MD Primary Care Provider: PRE-DELIVERY DIAGNOSIS: 20-year-old 1 para 0 at 39 weeks and 1 day gestation GBS negative Obesity-BMI of 39 Elective induction of labor POST-DELIVERY DIAGNOSIS: Vaginal delivery on 08/27/2021 PROCEDURE: Vaginal delivery on 08/27/2021 ANESTHESIA: Epidural anesthesia DELIVERING PHYSICIAN: Cele Fay FACOG PRE-DELIVERY COURSE: Ms. Lockhart is a 20-year-old 2 P1001 at 39 weeks and 1 day who presented to labor and delivery on 09/25/2021 for elective induction of labor. She states that she has been having irregular contractions but nothing consistently denies any change in her history since last saw her. On exam she was noted to be 2 cm 60% and -3 station cephalic with a category 1 tracing. Induction was started with Cytotec placed at midnight. 4 hours later she had made minimal cervical change to 2 to 3 cm but was now 70% and -3 station. She was allowed to rest and was allowed to eat and Pitocin was started at 6 AM titrated to a maximum of 17 mIU. With this she started to have regular contractions but made just minimal cervical change to 3 cm 70% and -3 station. Artificial rupture of membranes was performed at 12:42 AM with clear fluid and at this time she was 4 cm 60% and -2 station. She started to have variable decelerations with contractions after this and Pitocin was cut down and oxygen given and tracing responded well and was category 1. She grow uncomfortable and an epidural was placed. After the epidural she was noted to be 5 cm at 3 PM. She made rapid cervical change and was fully dilated at 5:20 PM when the head was 0 station. She was allowed to labor down and she was started pushing at 5:51 PM. Tracing was overall category 1 with small areas of variable decelerations that responded to position change. DELIVERY NOTE: She was set up in lithotomy position and was pushing effectively. She was noted to be +3 station and continued pushing well. The head delivered in LYNSEY position, no nuchal cord was present. The shoulders and rest of the body followed with her next push with the posterior right shoulder delivering before the anterior shoulder. The baby's mouth and nose were suctioned and the baby was placed on the mother's belly. Once cord pulsations stopped the cord was clamped and cut. The placenta delivered spontaneously intact with membranes and was discarded. The fundus was noted to be firm and well contracted. The vagina and cervix were inspected and no cervical or sulcal lacerations were noted. The perineum was noted to be intact. Baby boy , Jeancarlos born at 6:40 PM on 09/26/2021 with 9/9, weighing 7 pounds 1 ounce, 3200 g, 20-1/2 inches long. Placenta was delivered spontaneously intact with membranes at 6:43 PM. Cotyledons were intact , centrally inserted umbilical cord with 3 vessels noted. Estimated blood loss 250 mL. Complications-none, both baby and mother were left to recover in a stable condition HOSPITAL COURSE: She underwent an uncomplicated vaginal delivery on 09/26/2021.. She did well on day 0 and was ambulating well, tolerating regular diet, voiding freely, passing flatus. She was breast-feeding without difficulty and bonding well with her son. She desired him to have a circumcision which was performed on day of life one-he had some bleeding associated with this and stitches are to be placed which controlled bleeding well. He was observed on current day of life 2 and circumcision looked well and was hemostatic.. Pain was well-controlled with by mouth pain medication. She denied nausea, vomiting, fever, chills, shortness of breath, leg pain. She had moderate vaginal bleeding. On day # 1 she continued to do well with stable vital signs and stable hemoglobin at 11. She continued to do well on day #2 with stable vital signs.. She was discharged home on day 2 in a stable condition. Warning signs for endometritis, mastitis, DVT/PE were reviewed with her. Post delivery activity restrictions were also reviewed with her at all her questions were answered to her satisfaction. Plans on using the patch for contraception which will be prescribed at her 6-week visit EXAM AT DISCHARGE: Gen.: No acute distress Heart: S1-S2 heard, regular rate and rhythm Lungs: Clear to auscultation bilaterally Abdomen: Soft, fundus firm below umbilicus, Legs: No calf tenderness, trace bilateral pitting pedal edema. CONDITION AT DISCHARGE: Stable This documentation was created by [employer] sap consultant software (known for inherent sap consultant error). Every effort was made to assure accuracy of sap consultant. Any obvious errors or omissions should be clarified with the author of the document. Reason for Visit Reason for Visit: IOL Information Peripartum Data: Infant Delivery Method: Vaginal Physical Exam Urinary Catheter Management^: Latex Free: Cath Placed During This Visit: yes Urinary Catheter Date of Insertion: 09/26/21 Urinary Catheter Time of Insertion: 15:05 History History History 2 Term 1 Miscarriages/Ectopic 0 0 Living Children 1 Other History: X 2 1--> 12/11/2019, male, ([place]) , 6 lbs 12 ozs, 38 wks, epidural, vaginal delivery by Dr Fay at [place], [place]. Delivery was uncomplicated. 2--> 09/26/2021, male,(Jeancarlos), 7 pounds 1 ounce, 39 weeks 1 day, epidural, vaginal [place] [facility] [place] Intact perineum. Discharge Data Vitals: Last Vital Signs Temp 97.5 F L 09/28/21 09:50 Pulse 104 H 09/28/21 09:50 Resp 15 09/28/21 09:51 BP 124/76 09/28/21 09:50 Pulse Ox 100 09/26/21 15:58 Discharge Plan Discharge Patient Disposition: Home Condition: Stable Prescriptions: New ibuprofen 800 mg tablet 800 mg PO Q8H Qty: 30 RF: 0 docusate sodium 100 mg Capsule 100 mg PO BID PRN (Reason: constipation) Qty: 30 RF: 0 Continued Gummies 400 mcg-35 mg- 25 mg-5 mg tablet,chewable 1 tab PO DAILY RF: 0 No Action (DME) breast pump [Pump In Style Advanced] Device See Rx Instructions .MEDSUPPLY Qty: 1 RF: 0 Discharge Orders: Discharge Order (Routine); Ordered 09/28/21 Ordered By: Cele Bae Patient Instructions: Opioid Safety Discharge Attestations AGENCY SALES DEVELOPMENT ASSOCIATE Time Spent in Discharge Care*: greater than 30 min Coding Level of Care Code Acute Home Hospice Aide for g Gonzalez
[2021-09-28 14:59] VITALS: BP 121/73; PULSE 96
[2021-09-28 15:18] VITALS: BP 121/73; PULSE 96
== END 2021-09-28 15:20 | disposition home or self-care (01) | DRG 807 ==
LOC: OPOB 09-26 00:14 → OBGYN 09-26 00:14
PROVIDERS: Admitting Provider Obstetrics & Gynecology; PCP Electrodiagnostic Medicine; Visit Provider Obstetrics & Gynecology
DX: O99.214 Obesity complicating childbirth (principal); Z37.0 Single live birth; Z3A.39 39 weeks gestation of pregnancy; O76 Abnormality in fetal heart rate and rhythm complicating labor and delivery
CPT/HCPCS: 36415; 51702; 59025; 59409; 85025; 85027; G0378; J2795; J3010

== ENCOUNTER 2021-10-22 20:28 | Emergency (ER) | payer MEDICAID, SELFPAY ==
[2021-10-22 20:46] VITALS: BP 112/82; PULSE 78; RESP 18; O2SAT 100
[2021-10-22 21:05] VITALS: BP 112/82; PULSE 78; RESP 18; O2SAT 100
[2021-10-22 21:13] LABS: HCG Qualitative Urine. Negative (Negative)
--- NOTE | 2021-10-22 21:17 | ED.C_ITS ---
HPI - Psych General: Chief Complaint: Psychiatric Symptoms Stated Complaint: Psych Eval Time Seen by Provider: 10/22/21 20:38 Source: patient Limitations: no limitations History of Present Illness: 21-year-old female who is here with her because he wants to get a psych eval for possible depression they just had their 2nd child and been staying with his mother for 2 weeks recently went home and grandmother had baby. Patient was wanting to get the baby back and grandmother was refusing grandmother lives in [place] mother was in couple and she decided to walk she is upset here but she adamantly denies any suicidal or homicidal ideations. She denies any thoughts of harm to the baby. states she has not made any statements of harm to herself or anyone else. Associated symptoms: Reports depression Review of Systems Const: Denies: fever(s), chills, body aches or change in appetite Eyes: Denies: blurry vision or eye discomfort ENMT: Denies: throat pain or dental pain Card: Denies: chest pain Resp: Denies: dyspnea GI: Denies: abdominal pain, nausea, vomiting or diarrhea : Denies: dysuria Musc: Denies: neck pain or back pain Skin/Breast: Denies: rash Neuro: Denies: headache(s) Psych: Reports: depression Alex/Lymph: Denies: easy bruising All/Imm: Denies: urticaria PFSH ED PFSH: Medical History No pertinent past medical history Denies diabetes, asthma, hypertension, seizures, DVT/PE PMD: none Surgical History No history of previous surgery Family History Grandfather Diabetes Maternal Father Hypertension Denies family history of Colon cancer Ovarian cancer Heart disease Hyperlipidemia Breast cancer Uterine cancer Thyroid condition Stroke Female Reproductive History: Date of last menstrual period: 12/29/20 Physical Exam Const: COMMON NORMALS: no acute distress, patient oriented x3 and healthy appearing HENMT: COMMON NORMALS: normocephalic and atraumatic HEAD & SCALP: normocephalic and atraumatic Eye: COMMON NORMALS: Equal, round and reactive pupils present and EOMs intact bilaterally PUPIL: Yes Equal, round and reactive pupils present Neck/C-Spine: COMMON NORMALS: full ROM and supple Chest: COMMONS NORMALS: normal inspection of the chest and normal palpation of entire chest wall Resp: COMMON NORMALS: normal respiratory effort, No retractions, No use of accessory muscles and clear to auscultation bilaterally AUSCULTATION: clear to auscultation bilaterally Cardio: COMMON NORMALS: regular rate, regular rhythm and No murmurs present (Cardio) RATE: regular rate RHYTHM: regular rhythm GI: COMMON NORMALS: Normal to inspection, nondistended, normoactive bowel sounds present, Soft to palpation, non-tender and no masses PALPATION: Yes Soft to palpation Extremity: COMMON NORMALS: normal to inspection and full ROM Neuro: COMMON NORMALS: patient oriented x3, moves all extremities and no focal motor deficits Psych: COMMON NORMALS: mental status grossly normal, Normal thought process present and cooperative THOUGHT PROCESS: Normal thought process present OTHER: tearful/ denies si/hi Skin: COMMON NORMALS: no rashes or lesions noted and no wounds GENERAL SKIN EXAM: no rashes or lesions noted Course Vital Signs: Vital signs: Vital Signs Pulse Rate 78 10/22/21 21:05 Respiratory Rate 18 10/22/21 21:05 Blood Pressure 112/82 10/22/21 21:05 Pulse Oximetry 100 10/22/21 21:05 MDM - Psych Medical Decision Making Patient presents here with some depression she adamantly denies suicidality she is not claimed suicidality or homicidality to any family members either patient was evaluated by Dr. Oglesby who is in agreement she is not acutely homicidal or suicidal she is having some depression did inform he should stay with her the next couple nights return if worsening we will get her follow-up with [facility] she understands agrees to plan. Lab Data Laboratory Results HCG, Qual Negative (Negative) 10/22/21 21:05 Discharge Plan Discharge Patient Disposition: Home Clinical Impression: Depression Condition: Stable Prescriptions: No Action Gummies 400 mcg-35 mg- 25 mg-5 mg tablet,chewable 1 tab PO DAILY 0RF (DME) breast pump [Pump In Style Advanced] Device See Rx Instructions .MEDSUPPLY Qty: 1 0RF Rx Instructions: As directed ibuprofen 800 mg tablet 800 mg PO Q8H Qty: 30 0RF docusate sodium 100 mg Capsule 100 mg PO BID PRN (Reason: constipation) Qty: 30 0RF Discharge Orders: Discharge ED (Routine); Ordered 10/22/21 Ordered By: Carlos Yu Referrals: Nikolai Edge DO [Primary Care Provider] - 1-3 days Discharge Diet: Advance as tolerated Discharge Activity: Resume usual activity Patient Instructions: Depression (ED) Stand Alone Forms: Work/School Release Coding Level of Care Code ED 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
[2021-10-22 21:32] LABS: Amphetamines Screen Urine Negative (Negative); Barbiturates Screen Urine Negative (Negative); Benzodiazepines Screen Urine Negative (Negative); Cocaine Screen Urine Negative (Negative); Opiate Screen Urine Negative (Negative); PCP Screen Urine Negative (Negative); THC Screen Urine Negative (Negative)
[2021-10-22 21:37] VITALS: RESP 16
--- NOTE | 2021-10-23 10:03 | DCPLANNER ---
digital sales manager had message to speak with patient about getting services at [facility]. digital sales manager called phone number [phone], unable to speak with patient or leave a voicemail due to patient not being able to receive calls.
== END 2021-10-22 21:38 | disposition home or self-care (01) ==
PROVIDERS: Emergency Provider Emergency Medicine; PCP Electrodiagnostic Medicine
DX: F32.A Depression, unspecified (principal)
CPT/HCPCS: 80306; 81025; 99283

== ENCOUNTER → 2021-11-11 11:30 | Outpatient (BNVA) | payer MEDICAID, SELFPAY | PROVIDERS: PCP Electrodiagnostic Medicine; Visit Provider Obstetrics & Gynecology | DX: O26.90 Pregnancy related conditions, unspecified, unspecified trimester (principal); Z12.4 Encounter for screening for malignant neoplasm of cervix | CPT/HCPCS: 84702; 88175 ==

== ENCOUNTER → 2022-02-11 09:45 | Outpatient (BNVA) | payer MEDICAID, SELFPAY | PROVIDERS: PCP Electrodiagnostic Medicine; Visit Provider Obstetrics & Gynecology | DX: Z30.9 Encounter for contraceptive management, unspecified (principal) | CPT/HCPCS: 81025; 84702 ==

== ENCOUNTER → 2022-02-21 11:08 | Outpatient (BNVA) | payer MEDICAID, SELFPAY | PROVIDERS: PCP Electrodiagnostic Medicine; Visit Provider Family Medicine | DX: J02.0 Streptococcal pharyngitis (principal) | CPT/HCPCS: 87880 ==